=== PATIENT | female | born 1980 | race Caucasian/White ===

== ENCOUNTER 2017-10-19 22:16 | Emergency (ER) | payer OTHER ==
[~2017-10-19] VITALS: Ht 167.6 cm; Wt 58.0 kg
[~2017-10-19 22:16] MED LIST: PRENATAL1 EACH PO
[2017-10-20 00:56] LABS: HEMATOCRIT 36.8 % (36.0-46.0); HEMOGLOBIN 12.7 G/DL (11.9-15.5); MCH 31.1 PG (29.0-34.0); MCHC 34.5 G/DL (30.0-36.0); PLATELET COUNT 120 K/uL (156-360); RBC DIS.WIDTH-CV 11.9 % (11.8-14.6); RBC DIS.WIDTH-SD 39.3 % (39-53); RED BLOOD COUNT 4.09 M/uL (3.80-5.20)
[2017-10-20 01:06] LABS: CHLORIDE 102 mEq/L (99-109); POTASSIUM 3.8 mEq/L (3.7-5.4); SODIUM 139 mEq/L (136-147)
[2017-10-20 01:08] LABS: GLUCOSE 121 mg/dL (70-99)
[2017-10-20 01:12] LABS: CREATININE 0.9 mg/dL (0.6-1.3); GFR ESTIMATE (CALCULATED) > 59 mL/min/
[2017-10-20 01:13] LABS: UREA NITROGEN (BUN) 12 mg/dL (9-23)
[2017-10-20] MEDS ORDERED: PREDNISONE20 MG PO (02:45)
[2017-10-20] MEDS ORDERED: VENTOLIN HFA18 GM IH (02:45)
[2017-10-20] MEDS ORDERED: FLONASE16 G1 BOTH NARES (02:45)
[2017-10-20 03:27] VITALS: BP 100/59
== END 2017-10-20 03:28 | disposition home or self-care (01) ==
LOC: EME 22:16
PROVIDERS: Nurse Practitioner Family
DX: J06.9 Acute upper respiratory infection, unspecified (principal); R06.02 Shortness of breath; Z88.5 Allergy status to narcotic agent
CPT/HCPCS: 71046; 71275; 80048; 85027; 85379; 93005; 94640; 99281; 99284; J7030